=== PATIENT | female | born 1945 | race Caucasian/White ===

== ENCOUNTER 2020-09-20 13:10 | Emergency (ER) | payer MEDICARE, OTHER, SELFPAY ==
[2020-09-20 13:12] VITALS: BP 112/88; PULSE 81; RESP 18; TEMP 35.2; O2SAT 99; BMI 27.6
--- NOTE | 2020-09-20 13:44 | RAD_ITS ---
STUDY: X-RAY - SOFT TISSUE NECK REASON FOR EXAM: Female, 75 years old. Sensation of foreign body. TECHNIQUE: 2 view(s) of the neck were obtained. COMPARISON: None. FINDINGS: Normal visualized nasopharynx, oropharynx, hypopharynx. Normal epiglottis. Normal visualized subglottic tracheal air column. Normal prevertebral soft tissue structures. Mild lower cervical spondylosis. The soft tissue structures are unremarkable. RAD/Neck for Soft Tissue IMPRESSION: Mild cervical spondylosis. No abnormality of the soft tissues. Electronically Signed: Daniel Castro MD at 14:57 EDT , Service support ,
--- NOTE | 2020-09-20 13:52 | EDS_ITS ---
HPI History of Present Illness Chief Complaint: Foreign Body Informant: patient Narrative Narrative: Patient is a 75-year-old female who presents to the emergency department for strange sensation in her throat. The best she can describe it is she feels like she has a popcorn kernel stuck in the back of her throat while she has not eaten any popcorn. This started earlier today. She was not eating at the time of onset. No issues with handling secretions. No shortness of breath or chest pain. She has not felt any lump sensation in her neck. She is never had this before. No headache, ear pain. She does not describe it as a sore throat. She tried to use some [id number] Chan's medication which did not give her relief. She tried to eat some food but felt like this was triggering her gag reflex. She does have a history of hypertension. [facility] Medical History (Updated 09/20/20 @ 15:[address] Jorje Cohn DO) Arthritis Cancer GERD (gastroesophageal reflux disease) Hyperlipemia Hypertension Home Medications glucosamine-chondroitin 30 ml PO DAILY 09/20/20 [History Last Taken Unknown] irbesartan-hydrochlorothiazide 0.5 tab PO DAILY 09/20/20 [History Last Taken Unknown] multivitamin [One A Day Vitamin] 1 tab PO DAILY 09/20/20 [History Last Taken Unknown] omeprazole 20 mg PO DAILY 09/20/20 [History Last Taken Unknown] pravastatin 40 mg PO DAILY 09/20/20 [History Last Taken Unknown] Allergy/AdvReac Type Severity Reaction Status Date / Time sulfamethoxazole Allergy Anaphylaxis Verified 09/20/20 13:14 [From Bactrim] trimethoprim [From Bactrim] Allergy Anaphylaxis Verified 09/20/20 13:14 Surgical History (Updated 09/20/20 @ 13:25 by Summer Arzate) History of hysterectomy History of tonsillectomy and adenoidectomy Social History Smoking Status: Never smoker ROS ROS ED Constitutional Constitutional ED: Denies chills or fever(s) Eyes Eyes: Denies change in vision ENT ENT ED: Denies epistaxis, hoarseness, lip swelling, nasal trauma, neck mass, neck pain, rhinorrhea, sore throat, throat swelling or tongue swelling Cardiovascular Cardiovascular: Denies chest pain or palpitations Respiratory/Chest Respiratory/Chest: Denies cough, dyspnea or dyspnea on exertion Gastrointestinal Gastrointestinal: Denies abdominal pain, diarrhea, nausea or vomiting Musculoskeletal Musculoskeletal: Denies back pain or neck pain Integumentary Denies rash Neurologic Neurologic: Denies dizziness, headache(s) or weakness EXAM Physical Exam Const Vital Signs: 09/20/20 13:12 09/20/20 13:23 Temperature 95.3 F L Temperature Source Oral Pulse Rate 81 Respiratory Rate 18 Respiratory Effort Normal Non-Labored Respiratory Pattern Normal Blood Pressure 112/88 H Blood Pressure Mean 96 Pulse Ox 99 Oxygen Delivery Method Room Air Positive well nourished and well developed General Appearance ED: active, well developed and NAD HEENT Reports normocephalic Nose: external nose normal and nares normal Mouth ED: Yes oral and palatal mucosa normal, Yes lips normal, Yes tongue normal, Yes moist mucous membranes normal, No muffled voice, No tongue abnormal and No trismus Mouth: oral and palatal mucosa normal, lips normal, tongue normal, No muffled voice, No tongue abnormal and No trismus Throat: posterior oropharynx normal and uvula midline; Negative for uvular edema or hoarseness Eyes PERRL and EOMs intact bilaterally Neck full ROM, No nuchal rigidity, no lymphadenopathy and supple General: normal visual inspection and trachea midline; Negative for tenderness Resp normal respiratory effort, normal air movement and no retractions Resp Narrative: No stridor Effort and Inspection: Negative for respiratory distress or actively coughing Cardio regular rate, regular rhythm and no murmurs GI normal to inspection, nondistended, normoactive bowel sounds Back/Spine normal ROM Extremity normal to inspection and full ROM Neuro oriented x3 and CN's II-XII intact bilaterally Psych mental status grossly normal Skin no rashes or lesions noted MDM MDM MDM Narrative Medical decision making narrative: Patient presents to the emerge department for abnormal sensation in the throat. She has a benign physical exam without any masses, lesions. She is in no acute distress. No issues handling her secretions. No respiratory issues. Will check x-ray of the neck. Will treat symptomatically with a GI cocktail. After GI cocktail she was feeling better but started to feel like it was wearing off. X-ray did not reveal any obvious mass, foreign body or significant swelling. Patient able to eat applesauce. I did offer to do a CT scan as she still does have a strain sensation but she is agreeable with trialing going home and symptomatic management. I did give ENT referral for potential scope if this continues on tomorrow. If she drops any worsening symptoms such as swelling, shortness of breath, difficulty handling secretions she needs to return to the emergency department immediately. At this time I have low concern for mass, stroke, and dysphagia, significant foreign body obstructing the airway. She is discharged home in stable condition. All questions were answered. Radiography Diagnostic Testing: Radiology Impression Soft Tissue Neck X-Ray 09/20/20 13:44 IMPRESSION: Mild cervical spondylosis. No abnormality of the soft tissues. Electronically Signed: Daniel Castro MD at 14:57 EDT , Service support , Discharge Plan Triage Chief Complaint: Foreign Body ED Provider: Jorje Cohn Dx/Rx/DC Orders Clinical Impression: Foreign body sensation in throat Instructions: ED Swallowed Foreign Body (Adult) Prescriptions: No Action multivitamin [One A Day Vitamin] Tablet 1 tab PO DAILY RF: 0 irbesartan-hydrochlorothiazide 150-12.5 mg Tablet 0.5 tab PO DAILY RF: 0 pravastatin 40 mg Tablet 40 mg PO DAILY RF: 0 omeprazole 20 mg Tablet,Delayed Release (Dr/Ec) 20 mg PO DAILY RF: 0 glucosamine-chondroitin 2,000-1,200 mg/30 mL Liquid 30 ml PO DAILY RF: 0 Primary Care Provider: Simon Ignacio Referrals: Simon Ignacio MD [Primary Care Provider] - Kofi Galarza MD [STAFF PHYSICIAN] - 1 Day Disposition Disposition: Home, self care Discharge Date/Time: 09/20/20 15:44
[2020-09-20] MEDS: Mag Hydrox/Al Hydrox/Simeth 30 ML UDC PO (14:00)
== END 2020-09-20 15:44 | disposition home or self-care (01) ==
PROVIDERS: Emergency Provider Emergency Medicine
DX: T17.228A Food in pharynx causing other injury, initial encounter (principal); K21.9 Gastro-esophageal reflux disease without esophagitis; E78.5 Hyperlipidemia, unspecified; X58.XXXA Exposure to other specified factors, initial encounter; Z79.899 Other long term (current) drug therapy
CPT/HCPCS: 70360; 99282